=== PATIENT | male | born 1970 | race Caucasian/White ===

== ENCOUNTER 2020-09-27 23:59 | Emergency (ER) | payer OTHER ==
--- NOTE | 2020-09-28 01:11 | EDM.PDOC ---
ED HPI GENERAL MEDICAL PROBLEM - General Chief Complaint: Drug or Alcohol Abuse Stated Complaint: MEDICAL CLEARANCE Time Seen by Provider: 09/28/20 00:10 Source of Information: Reports: Patient History Limitations: Reports: No Limitations - History of Present Illness INITIAL COMMENTS - FREE TEXT/NARRATIVE: Patient is a 50-year-old male comes in today for medical clearance. Patient initially came to the hospital to see his who is a patient here. The patient did not want him back at this time became very upset and get into a physical altercation with the staff and also Police Department. He was then detained by the police and placed in handcuffs. Patient needs to be medically cleared. When asked the patient if he had any complaints of headache fever chills nausea vomiting states that yes have all those things and more would not give me history as to what was bothering him states that he needs to be checked out. Patient said he does want to be here to see his again since patient did make these complaints stated he has some problems we elected to bring patient in and get vital signs. Patient was found to have a heart rate in the 150s so we asked if he had any chest pain does not really answer does not he say that is bothering him patient continues to go back and forth and screaming at the police and arguing about who was going to pay the bill. Patient again goes back and forth about if he wants to be seen or not is unclear. We have talked to the patient states his heart rate so high that we should we still EKGs basic labs which he is agreed to. Again patient's been difficult not really reporting if anything is currently bothering him at the time of he took any drugs or has any health problems. - Related Data Allergies Allergy/AdvReac Type Severity Reaction Status Date / Time No Known Allergies Allergy Verified 09/28/20 00:40 Home Meds: Home Meds . [No Known Home Meds] 09/28/20 [History] Past Medical History - Past Health History Medical/Surgical History: Denies Medical/Surgical History - Infectious Disease History Infectious Disease History: Reports: Chicken Pox ED ROS GENERAL - Review of Systems Review Of Systems: Unable To Obtain Reason Not Obtained: Patient been noncompliant ED EXAM, GENERAL - Physical Exam Exam: See Below Exam Limited By: No Limitations General Appearance: Alert, WD/WN, No Apparent Distress Eye Exam: Bilateral Eye: EOMI, PERRL Head: Atraumatic, Normocephalic Respiratory/Chest: No Respiratory Distress, Lungs Clear, Normal Breath Sounds Cardiovascular: Normal Peripheral Pulses, Regular Rate, Rhythm GI/Abdominal: Normal Bowel Sounds, Soft, Non-Tender Extremities: Normal Inspection Neurological: Alert, Oriented #1 Interpretation EKG Date: 09/28/20 Time: 00:53 Rhythm: Other (sinus tachy) Rate (Beats/Min): 150 ST-T: Normal Course - Vital Signs Last Recorded V/S: Last Vital Signs Temp 97.0 F 09/28/20 00:40 Pulse 133 H 09/28/20 02:43 Resp 16 09/28/20 02:43 BP 136/46 L 09/28/20 02:43 Pulse Ox 95 09/28/20 02:43 - Orders/Labs/Meds Orders: Active Orders 24 hr Category Date Time Status EKG Documentation Completion [RC] STAT Care 09/28/20 00:48 Active Sodium Chloride 0.9% [Normal Saline] 1,000 ml Med 09/28/20 02:09 Active IV .Bolus Medication Orders Sodium Chloride (Normal Saline) 1,000 mls @ 1,000 mls/hr IV .Bolus ONE Stop: 09/28/20 03:08 Last Admin: 09/28/20 02:26 Dose: 1,000 mls/hr Documented by: ELMA Labs: Laboratory Tests 09/28/20 09/28/20 Range/Units 01:00 01:00 WBC 7.11 (4.0-11.0) K/uL RBC 4.82 (4.50-5.90) M/uL Hgb 14.9 (13.0-17.0) g/dL Hct 42.1 (38.0-50.0) % MCV 87.3 (80.0-98.0) fL MCH 30.9 (27.0-32.0) pg MCHC 35.4 (31.0-37.0) g/dL RDW Std Deviation 40.2 (28.0-62.0) fl RDW Coeff of Loc 13 (11.0-15.0) % Plt Count 183 (150-400) K/uL MPV 9.70 (7.40-12.00) fL Neut % (Auto) 60.4 (48.0-80.0) % Lymph % (Auto) 30.8 (16.0-40.0) % [place] % (Auto) 6.9 (0.0-15.0) % Eos % (Auto) 1.5 (0.0-7.0) % Baso % (Auto) 0.4 (0.0-1.5) % Neut # (Auto) 4.3 (1.4-5.7) K/uL Lymph # (Auto) 2.2 (0.6-2.4) K/uL [place] # (Auto) 0.5 (0.0-0.8) K/uL Eos # (Auto) 0.1 (0.0-0.7) K/uL Baso # (Auto) 0.0 (0.0-0.1) K/uL Sodium 141 (136-148) mmol/L Potassium 3.6 (3.5-5.1) mmol/L Chloride 106 (98-107) mmol/L Carbon Dioxide 19.9 L (21.0-32.0) mmol/L BUN 20 H (7.0-18.0) mg/dL Creatinine 1.4 H (0.8-1.3) mg/dL Est Cr Clr Drug Dosing 55.70 mL/min Estimated GFR (MDRD) 53.2 ml/min Glucose 143 H (74-106) mg/dL Calcium 8.2 L (8.5-10.1) mg/dL Total Bilirubin 0.3 (0.2-1.0) mg/dL AST 26 (15-37) IU/L ALT 41 (14-63) IU/L Alkaline Phosphatase 124 H (46-116) U/L Troponin I < 0.050 (0.000-0.056) ng/mL Total Protein 7.1 (6.4-8.2) g/dL Albumin 3.8 (3.4-5.0) g/dL Globulin 3.3 (2.6-4.0) g/dL Albumin/Globulin Ratio 1.2 (0.9-1.6) Meds: Medications Generic Name Dose Route Start Last Admin Trade Name Freq PRN Reason Stop Dose Admin Sodium Chloride 1,000 mls @ 1,000 mls/hr 09/28/20 02:09 09/28/20 02:26 Normal Saline IV 06/27/21 03:08 1,000 mls/hr .Bolus ONE Administration - Re-Assessments/Exams Free Text/Narrative Re-Assessment/Exam: 09/28/20 02:49 Patient heart rate remains in 130 however he is not symptomatic from this. Patient is stable agitated and he consents when the police. Patient EKG shows a sinus tachycardia begin liter of fluids tropes are negative patient will be discharged to police custody. Departure - Departure Time of Disposition: 02:49 Disposition: Home, Self-Care 01 Condition: Good Clinical Impression: Tachycardia - Discharge Information *PRESCRIPTION DRUG MONITORING PROGRAM REVIEWED*: Not Applicable *COPY OF PRESCRIPTION DRUG MONITORING REPORT IN PATIENT OMAR: Not Applicable Instructions: Sinus Tachycardia Referrals: PCP,None [Primary Care Provider] - Forms: ED Department Discharge Additional Instructions: The following information is given to patients seen in the emergency department who are being discharged to home. This information is to outline your options for follow-up care. We provide all patients seen in our emergency department with a follow-up referral. The need for follow-up, as well as the timing and circumstances, are variable depending upon the specifics of your emergency department visit. If you don't have a primary care physician on staff, we will provide you with a referral. We always advise you to contact your personal physician following an emergency department visit to inform them of the circumstance of the visit and for follow-up with them and/or the need for any referrals to a consulting specialist. The emergency department will also refer you to a specialist when appropriate. This referral assures that you have the opportunity for follow-up care with a specialist. All of these measure are taken in an effort to provide you with optimal care, which includes your follow-up. Under all circumstances we always encourage you to contact your private physician who remains a resource for coordinating your care. When calling for follow-up care, please make the office aware that this follow-up is from your recent emergency room visit. If for any reason you are refused follow-up, please contact the [facility] Emergency Department at and asked to speak to the emergency department charge nurse. Please follow up with your primary care physician. If you do not have a primary care physician, see below: [facility] [address] [place] [id number] [facility] [address] [place] [address] You are seen today after you were arrested and you stated that you want to be seen for evaluation. Your heart rate was in the 150s he did drop down to the 130s. We did a EKG that showed to be sinus tach cardia. We did a troponin to make sure heart was okay. Heart rate stayed in the 130s even at the IV fluids. He denies any be symptomatic from his high heart rate. We recommend you follow- up with your primary care physician when released from the police custody. If any other concerning signs or symptoms please return to the ED. Sepsis Event Note (ED) - Evaluation Sepsis Screening Result: No Definite Risk - Focused Exam Vital Signs: Vital Signs Temp Pulse Resp BP Pulse Ox 09/28/20 02:43 133 H 16 136/46 L 95 09/28/20 01:55 136 H 18 148/128 H 94 L 09/28/20 00:40 97.0 F 150 H 18 181/95 H 94 L - My Orders Last 24 Hours: My Active Orders 09/28/20 00:48 EKG Documentation Completion [RC] STAT 09/28/20 02:09 Sodium Chloride 0.9% [Normal Saline] 1,000 ml IV .Bolus - Assessment/Plan Last 24 Hours: My Active Orders 09/28/20 00:48 EKG Documentation Completion [RC] STAT 09/28/20 02:09 Sodium Chloride 0.9% [Normal Saline] 1,000 ml IV .Bolus Plan: Patient is a 50-year-old male was brought in today for police custody. Patient got into altercation with the police and the staff in the waiting area while trying to forcibly back you to see his . Patient does not really give any medical complaints but does have elevated heart rate. We will do EKG labs and try to medically clear patient.
[2020-09-28 01:33] LABS: BLOOD UREA NITROGEN,BUN 20 mg/dL (7.0-18.0); CARBON DIOXIDE,CO2 19.9 mmol/L (21.0-32.0); CHLORIDE,CL 106 mmol/L (98-107); GLUCOSE RANDOM 143 mg/dL (74-106); POTASSIUM,K 3.6 mmol/L (3.5-5.1); SODIUM,NA 141 mmol/L (136-148)
[2020-09-28] MEDS ORDERED: Sodium Chloride 0.9% 1,000 ML IV ONE (02:09)
== END 2020-09-28 03:05 ==
LOC: MW.ED 23:59
DX: R00.0 Tachycardia, unspecified (principal)
CPT/HCPCS: 36415; 80053; 84484; 85025; 93005; 99285; J7030; 93010; 99283